=== PATIENT | male | born 1975 | race African-American/Black ===

== ENCOUNTER 2023-06-22 21:31 | Emergency (ER) | payer MEDICAID ==
[~2023-06-22] VITALS: Ht 180.3 cm; Wt 89.0 kg
[2023-06-22 21:47] VITALS: O2SAT 100
[2023-06-22] MEDS ORDERED: SODIUM CHLORIDE 0.9% 1,000 ML IV ONE (23:45)
[2023-06-23] VITALS: TEMP 98.8
[2023-06-23 00:10] LABS: MEAN PLATELET VOLUME 8.3 fl (7.4-10.4)
[2023-06-23 00:17] LABS: BASOPHILS % 0.8 % (0.0-2.0); EOSINOPHILS % 0.5 % (0.0-5.0); HEMATOCRIT. 46.4 % (42.0-52.0); HEMOGLOBIN. 15.9 g/dL (14.0-18.0); LYMPHOCYTES % 15.7 % (20.0-50.0); MEAN CORPUSCULAR HEMOGLOBIN 29.7 pg (28.0-32.0); MEAN CORPUSCULAR HGB CONC 34.3 g/dL (31.0-37.0); MEAN CORPUSCULAR VOLUME 86.5 fL (80.0-94.0); MONOCYTES % 7.8 % (2.0-8.0); NEUTROPHILS % 75.2 % (40.0-76.0); PLATELET 199 x1000/uL (130-400); RED BLOOD CELL COUNT 5.37 mill/uL (4.7-6.1); RED CELL DISTRIBUTION WIDTH 13.7 % (11.6-14.6); WHITE BLOOD COUNT 9.1 x1000/uL (4.5-11.0)
[2023-06-23 00:23] LABS: DIFFERENTIAL COMMENT 1
[2023-06-23 00:25] LABS: ALANINE AMINOTRANSFERASE 21 IU/L (10-49); ALBUMIN 4.3 g/dL (3.2-4.8); ASPARTATE AMINOTRANSFERASE 25 IU/L (<34); BILIRUBIN TOTAL 0.6 mg/dL (0.1-1.0); CALCIUM 9.7 mg/dL (8.7-10.4); CARBON DIOXIDE 29 mEq/L (21-32); CHLORIDE 105 mEq/L (98-107); CREATININE 1.3 mg/dL (0.6-1.3); GLUCOSE 95 mg/dL (70-105); POTASSIUM 4.3 mEq/L (3.5-5.1); PROTEIN TOTAL 7.9 g/dL (6.0-8.3); SODIUM 138 mEq/L (136-145); THYROID STIMULATING HORMONE 1.97 uIU/mL (0.55-4.78); TROPONIN I HIGH SENSITIVITY 15 ng/L (3.0-53); UREA NITROGEN BLOOD 10 mg/dL (9-23)
[2023-06-23 00:28] LABS: ETHANOL BLOOD < 10 mg/dL (<10)
[2023-06-23 02:01] LABS: TROPONIN I HIGH SENSITIVITY 20 ng/L (3.0-53)
[2023-06-23 04:58] VITALS: BP 115/75; PULSE 86; RESP 12
== END 2023-06-23 04:59 | disposition home or self-care (01) ==
LOC: ER 21:54
DX: R00.0 Tachycardia, unspecified (principal); R00.2 Palpitations; I10 Essential (primary) hypertension; Z20.822 Contact with and (suspected) exposure to COVID-19
CPT/HCPCS: 80053; 80320; 83880; 83605; 84443; 85025; 85379; 84484 ×2; 36415 ×2; 71045; 99284; 87804 ×2; 96360; 87426; J7030; G0480